=== PATIENT | male | born 1970 | race African-American/Black ===

== ENCOUNTER 2023-06-25 09:55 | Inpatient (IN) | payer SELFPAY ==
[2023-06-25] VITALS (16 sets, daily range): BP systolic 161–239; BP diastolic 94–146; PULSE 75–112; RESP 12–18; TEMP 36.6–36.7; O2SAT 98–100; BMI 24.0
--- NOTE | ~2023-06-25 | XR_ITS ---
EXAMINATION: XR CHEST 2 VIEW CLINICAL INFORMATION: Tension COMPARISON: None TECHNIQUE: PA and lateral views of the chest obtained. FINDINGS: The lungs are clear. There are no pleural effusions. The cardiomediastinal silhouette is normal. XR/XR chest 2V IMPRESSION: No acute cardiopulmonary disease.
--- NOTE | ~2023-06-25 | CT_ITS ---
EXAMINATION: CT HEAD WITHOUT CONTRAST CLINICAL INFORMATION: Weakness. COMPARISON: None. TECHNIQUE: Contiguous axial imaging was performed from the skullbase to vertex without intravenous administration of contrast. This CT examination was performed using dose optimization techniques as appropriate, variously including the following: *Automated exposure control *Adjustment of mA and/or kV according to patient size (this includes techniques or standardized protocols for targeted exams where dose is matched to indication/reason for exam; i.e. extremities or head) *Use of iterative reconstruction technique DLP: 835 mGy-cm. FINDINGS: There is no evidence of acute intracranial hemorrhage or territorial infarction. No abnormal mass effect or midline shift is seen. Benavidez to white matter differentiation is well preserved. No extra-axial fluid collections are identified. The ventricles are normal in size. There is no abnormal attenuation within the brain parenchyma. The osseous structures and soft tissues are normal. The mastoid air cells are well aerated. There is very mild mucosal thickening in the maxillary sinuses. CT/CT head/brain wo IV con IMPRESSION: No acute intracranial pathology.
--- NOTE | ~2023-06-25 | CT_ITS ---
EXAMINATION: CT HEAD WITHOUT CONTRAST CLINICAL INFORMATION: Hypertension COMPARISON: None available. TECHNIQUE: Contiguous axial imaging was performed from the skull base to vertex without intravenous administration of contrast. This CT examination was performed using dose optimization techniques as appropriate, variously including the following: *Automated exposure control *Adjustment of mA and/or kV according to patient size (this includes techniques or standardized protocols for targeted exams where dose is matched to indication/reason for exam; i.e. extremities or head) *Use of iterative reconstruction technique DLP: 822 mGy-cm FINDINGS: The ventricles and sulci are normal in size and configuration. No acute hemorrhage, mass effect or shift is evident. Ebnavidez-white differentiation is maintained. In the posterior fossa, the brainstem, cerebellum and fourth ventricle image normally. The orbits and calvarium are intact. The paranasal sinuses and mastoid air cells are well pneumatized and clear. CT/CT head/brain wo IV con IMPRESSION: 1. Unremarkable noncontrast brain CT. No acute hemorrhage, mass effect or shift. .
--- NOTE | 2023-06-25 10:15 | ECG_ITS ---
Test Reason : hypertension Blood Pressure : / mmHG Vent. Rate : 089 BPM Atrial Rate : 089 BPM P-R Int : 154 ms QRS Dur : 098 ms QT Int : 338 ms P-R-T Axes : 082 050 088 degrees QTc Int : 411 ms Normal sinus rhythm Possible Left atrial enlargement Left ventricular hypertrophy with repolarization abnormality ( Sokolow-Horowitz , [place] product ) Abnormal ECG No previous ECGs available Referred By: Generic ED Physician Electronically Signed By:GAYLE SOMERS MD
[2023-06-25 10:33] LABS: MANUAL DIFF FLAG NO
[2023-06-25 10:34] LABS: Basophils Percent Auto 0.2 % (0-2); Eosinophils Percent Auto 0.1 % (0-4); Hematocrit 42.5 % (42.0-52.0); Hemoglobin 14.1 g/dl (14.0-18.0); Imm Gran Abs Auto 0.02 X10*3/uL (0.00-0.03); Imm Gran Pct Auto 0.2 % (0.0-0.4); Lymphocytes Absolute Auto 1.3 X10*3/uL (1.2-4.9); Lymphocytes Percent Auto 14.9 % (20-40); Mean Corpuscular HGB Conc 33.2 g/dl (31.0-36.0); Mean Corpuscular Hemoglobin 31.2 pg (27.0-33.0); Mean Platelet Volume 11.4 fL (9.4-12.4); Monocytes Absolute Auto 0.6 X10*3/uL (0.1-1.2); Monocytes Percent Auto 6.9 % (2-11); Neutrophils Absolute Auto 6.7 x10*3/uL (2.0-8.3); Neutrophils Percent Auto 77.7 % (45-73); Platelet Count 212 X10*3/uL (160-400); Red Blood Count 4.52 X10*6/uL (4.60-5.80); Red Cell Distribution Width 11.9 % (11.0-16.0); White Blood Count 8.6 X10*3/uL (4.8-10.8)
[2023-06-25 10:48] LABS: Anion Gap 16 (12-20); Blood Urea Nitrogen 10 mg/dL (9-16); Calcium 10.3 mg/dL (8.4-10.2); Carbon Dioxide 26 mmol/L (22-29); Chloride 106 mmol/L (96-108); Estimated Glomerular Filt Rate > 60; Glucose Random 113 mg/dL (60-115); Potassium 3.7 mmol/L (3.3-5.1); Sodium 144 mmol/L (135-145)
[2023-06-25 10:56] LABS: Troponin-I High Sensitivity 12.6 ng/L (<3.5-35.0)
--- NOTE | 2023-06-25 12:12 | ED_ITS ---
HPI - General Adult General Chief complaint: General Medical Stated complaint: High Blood Pressure Sent by Time Seen by Provider: 06/25/23 12:08 Source: patient Mode of arrival: ambulatory Limitations: no limitations History of Present Illness HPI narrative: 53 year old male was seen at [facility] for a physical and was noted to have hypertension. Patient states he is aware of his hypertension and and endorses a family history of hypertension. He denies having been prescribed an antihypertensive in the past but is interested in taking one. Patient reports he periodically experiences dizziness and blurry vision but denies both at this time. Additionally, denies headache, nausea, vomiting, chest pain and SOB. Relieving factors: none Exacerbating factors: none Associated symptoms: denies other symptoms Treatments prior to arrival: none Related Data Home Medications Medication Instructions Recorded Confirmed No Known Home Meds 06/25/23 06/25/23 Allergies Allergy/AdvReac Type Severity Reaction Status Date / Time apple Allergy Intermediate Nausea Verified 06/25/23 10:09 banana Allergy Intermediate Swelling Verified 06/25/23 10:09 milk Allergy Mild Nausea Verified 06/25/23 10:09 Review of Systems 2 Constitutional: Constitutional: Denies headache(s) and Denies weakness Eyes: Eyes: Denies blurry vision and Denies change in vision ENT: Denies dizziness, Denies headache(s) and Denies disequilibrium Cardiovascular: Cardiovascular: Denies chest pain, Denies edema, Reports palpitations and Denies dyspnea Respiratory: Respiratory: Denies dyspnea and Denies wheezing Gastrointestinal: Gastrointestinal: Denies abdominal pain, Denies nausea and Denies vomiting Genitourinary: Genitourinary: Reports no additional male genitourinary complaints, Denies hematuria, Denies oliguria, Denies difficulty urinating, Denies dysuria, Denies urinary frequency, Denies urinary hesitancy, Denies urinary incontinence and Denies urinary urgency Musculoskeletal: Musculoskeletal: Reports no additional musculoskeletal complaints, Denies numbness and Denies tingling Neurologic: Denies dizziness, Denies headache(s), Denies numbness, Denies Sensory deficit (Neuro), Denies tingling, Denies disequilibrium and Denies weakness Psychiatric: Psychiatric: Reports no additional psychiatric complaints Endocrine: Endocrine: Reports palpitations Hematologic/Lymphatic: Hematologic/Lymphatic: Reports no additional hematologic/lymphatic complaints Allergic/Immunologic: Allergic/Immunologic: Denies wheezing PMFSH Past Medical History Attestation statement: The following information was validated with the patient. Source: old records reviewed and nursing notes reviewed Social History Social History Smoked in Last 30 Days: No Use of substances other than those prescribed or required for medical reasons: No Advance Directives: No Physical Exam ED Vital Signs: Vital Signs - 24 hr 06/25/23 10:10 06/25/23 12:24 06/25/23 12:36 Temperature 98.0 F Pulse Rate 100 112 H Pulse Rate [Monitor] 103 H Respiratory Rate 18 12 Blood Pressure 239/146 H 221/135 H Pulse Oximetry 98 100 Oxygen Delivery Method Room Air Room Air 06/25/23 13:49 06/25/23 14:22 06/25/23 15:34 Temperature Pulse Rate 96 106 H Pulse Rate [Monitor] Respiratory Rate 16 16 Blood Pressure 213/114 H 221/124 H 222/108 H Pulse Oximetry 98 100 Oxygen Delivery Method Room Air Room Air 06/25/23 16:54 06/25/23 17:15 06/25/23 18:40 Temperature Pulse Rate 97 88 Pulse Rate [Monitor] Respiratory Rate 16 18 Blood Pressure 228/133 H 208/123 H 208/125 H Pulse Oximetry 98 Oxygen Delivery Method Room Air 06/25/23 19:22 06/25/23 20:19 06/25/23 21:44 Temperature 97.9 F Pulse Rate 79 75 Pulse Rate [Monitor] Respiratory Rate 18 12 Blood Pressure 229/139 H 161/94 H 182/106 H Pulse Oximetry 98 99 Oxygen Delivery Method Room Air Room Air BMI result Body Mass Index 24.0 Const General: cooperative, no acute distress and alert Nutritional Appearance: well nourished Orientation/consciousness: oriented to person, oriented to place and oriented to time Limitations: no limitations HENMT Head: Yes atraumatic Ears: hearing grossly normal bilaterally and external ears normal General nose exam: Normal external nose present, no nasal discharge noted and no epistaxis Face and sinus: Yes normal facial exam, No abrasion and No laceration Mouth: Normal oral and palatal mucosa present, no drooling and no muffled voice Eyes General: appearance normal, both eyes and all related structures Periorbital: periorbital findings normal Eyelids: Yes eyelids normal Conjunctivae: conjunctivae normal Pupils: Equal, round and reactive pupils present EOM: EOMs intact bilaterally Neck Neck: Yes normal visual inspection, Yes full ROM and Yes no lymphadenopathy Chest Chest palpation & inspection: normal inspection of the chest Resp Effort & Inspection: normal respiratory effort, able to speak in complete sentences and not tachypneic Auscultation: clear to auscultation bilaterally Cardio Rate: regular rate Rhythm: regular rhythm GI Inspection: Yes normal to inspection Neuro General: oriented to person, oriented to place and oriented to time Cranial nerves: Yes Equal, round and reactive pupils present Cognition (Neuro): normal cognition Gait exam (Neuro): Normal gait present Motor exam (neuro): 5/5 motor strength present throughout Sensory Exam: No Sensory deficit (Neuro) Coordination: [id number] test normal Extrem General: Yes normal to inspection, Yes full ROM and Yes capillary refill normal Psych Appearance: well kempt Mental Status: mental status grossly normal Affect: normal affect Attitude: cooperative Thought process: Normal thought process present Thought content: Normal thought content present Insight: Good insight present (Psych) Course Reevaluation(s) Reevaluation #1: Patient received in sign-out at change shift pending blood pressure control and admission. Patient 100 received hydrochlorothiazide 25 mg p.o. and amlodipine 10 mg p.o. prior to my except in the patient's care. Patient blood pressure still elevated the approximately 220/130 systolic. He received labetalol 10 mg IV with slight improvement at any rate went back up to his baseline. I a trial dose of labetalol 20 mg IV with no improvement. Will trial a dose of hydralazine 20 mg IV with labetalol 20 mg IV and if this is not successful we will consider nicardipine drip Time: 19:15 Reevaluation #2: Patient had a syncopal episode after receiving IV labetalol with IV hydralazine. His blood pressure was recheck his systolic blood pressure was 95. The patient likely had a hypoperfusion episode due to the significant drop in blood pressure. He came back around quite quickly and he had no neuro deficits. The patient reports feeling lightheaded. Repeat EKG was performed. Will repeat labs. Will closely follow blood pressure every 15 minutes. Time: 20:11 Reevaluation #3: Patient admitted to the medical service Time: 21:45 Medications Administered Discontinued Medications Generic Name Dose Route Start Last Admin Trade Name Freq PRN Reason Stop Dose Admin Amlodipine Besylate 10 mg 06/25/23 14:47 06/25/23 15:11 Amlodipine Besylate 10 Mg Tablet PO 06/25/23 14:48 10 mg ONCE ONE Administration Protocol Hydralazine HCl 20 mg 06/25/23 19:13 06/25/23 19:24 Hydralazine Hcl 20 Mg/Ml Vial IVPUSH 06/25/23 19:14 20 mg ONCE ONE Administration Protocol Hydrochlorothiazide 25 mg 06/25/23 13:28 06/25/23 13:47 Hydrochlorothiazide 25 Mg Tablet PO 06/25/23 13:29 25 mg ONCE ONE Administration Protocol Labetalol HCl 10 mg 06/25/23 16:27 06/25/23 16:51 Labetalol Hcl 100 Mg/20 Ml Vial IVPUSH 06/25/23 16:28 10 mg ONCE ONE Administration Labetalol HCl 20 mg 06/25/23 18:26 06/25/23 18:41 Labetalol Hcl 100 Mg/20 Ml Vial IVPUSH 06/25/23 18:27 20 mg ONCE ONE Administration Labetalol HCl 20 mg 06/25/23 19:13 06/25/23 19:24 Labetalol Hcl 100 Mg/20 Ml Vial IVPUSH 06/25/23 19:14 20 mg ONCE ONE Administration Medical Decision Making Medical Decision Making [facility] Narrative: Patient is a 53 year old assigned male at with a history of untreated HTN presenting to the emergency department today with HTN. Patient's physical exam was unremarkable. Patient's blood work was unremarkable. Patient's urine showed no acute process. Patient's EKG showed LVH. Patient's chest x-ray and head CT showed no acute process. I explained my physical exam findings as well as all test results to the patient. I answered all questions asked by the patient. I spoke to the dope weigh operator who recommended giving the patient PO HCTZ and admitting the patient to medicine if his blood pressure did not drop. Patient's blood pressure did not decrease much after getting the PO HCTZ. Spoke with the hospitalist team who stated they would not be admitting the patient until the systolic BP is below 200. Patient was given a dose of amlodipine. Patient signed out to the overnight PA pending blood pressure decreasing. Differential Diagnosis Differential Diagnoses: The differential diagnosis associated with the presentation includes HTN Admission/Observation Consideration of admission/observation: Escalation of care including admission/observation considered Consult Healthcare Provider Management of the patient was discussed with: Senior Android Software Engineer (spoke with cardiology as noted in the MDM Rationale portion of this note. ) Lab Data [facility] Lab Attestation statement: I reviewed the patient's lab results. My interpretation of these studies and their corresponding values is that they are grossly normal. 06/25/23 10:27 06/25/23 20:08 Labs: Lab Results 06/25/23 06/25/23 06/25/23 Range/Units 10:27 12:52 12:56 WBC 8.6 (4.8-10.8) X10*3/uL RBC 4.52 L (4.60-5.80) X10*6/uL Hgb 14.1 (14.0-18.0) g/dl Hct 42.5 (42.0-52.0) % MCV 94.0 (80.0-98.0) fL MCH 31.2 (27.0-33.0) pg MCHC 33.2 (31.0-36.0) g/dl RDW 11.9 (11.0-16.0) % Plt Count 212 (160-400) X10*3/uL MPV 11.4 (9.4-12.4) fL Immature Gran % (Auto) 0.2 (0.0-0.4) % Neut % (Auto) 77.7 H (45-73) % Lymph % (Auto) 14.9 L (20-40) % [place] % (Auto) 6.9 (2-11) % Eos % (Auto) 0.1 (0-4) % Baso % (Auto) 0.2 (0-2) % Lymph # (Auto) 1.3 (1.2-4.9) X10*3/uL [place] # (Auto) 0.6 (0.1-1.2) X10*3/uL Eos # (Auto) 0.0 (0.0-0.4) X10*3/uL Baso # (Auto) 0.0 (0.0-0.2) X10*3/uL Abs Immat Gran (auto) 0.02 (0.00-0.03) X10*3/uL Absolute Neuts (auto) 6.7 (2.0-8.3) x10*3/uL Absolute Nucleated RBC 0.000 (0.0-0.012) X10*3/uL Nucleated RBC % (auto) 0.0 (0.0-0.2) /100WBC Sodium 144 (135-145) mmol/L Potassium 3.7 (3.3-5.1) mmol/L Chloride 106 (96-108) mmol/L Carbon Dioxide 26 (22-29) mmol/L Anion Gap 16 (12-20) BUN 10 (9-16) mg/dL Creatinine 1.11 (0.5-1.4) mg/dL Estim Creat Clear Calc 81.0 Estimated GFR > 60 Random Glucose 113 (60-115) mg/dL Calcium 10.3 H (8.4-10.2) mg/dL Total Bilirubin (0.0-1.0) mg/dL AST (5-37) U/L ALT (0-40) U/L Alkaline Phosphatase (39-117) U/L Troponin I High Sens 12.6 15.1 (<3.5-35.0) ng/L Total Protein (6.5-8.0) g/dL Albumin (3.5-5.0) g/dL Urine Color Yellow Urine Appearance Clear Urine pH 7.0 (5.0-9.0) Ur Specific [place] 1.010 (1.005-1.025) Urine Protein 30 (1+) H (Neg-Trace) mg/dL Urine Glucose (UA) Negative (Negative) mg/dL Urine Ketones 15 (Negative) mg/dL Urine Blood Negative (Negative) Urine Nitrite Negative (Negative) Ur Leukocyte Esterase Negative (Negative) Urine RBC 0-2 (0-2) /HPF Urine WBC 0-5 (0-5) /HPF Ur Squamous Epith Cells 0-2 (0-2) /HPF Urine Bacteria None Seen (None Seen) Hyaline Casts 0-2 (0-2) /LPF 06/25/23 Range/Units 20:08 WBC (4.8-10.8) X10*3/uL RBC (4.60-5.80) X10*6/uL Hgb (14.0-18.0) g/dl Hct (42.0-52.0) % MCV (80.0-98.0) fL MCH (27.0-33.0) pg MCHC (31.0-36.0) g/dl RDW (11.0-16.0) % Plt Count (160-400) X10*3/uL MPV (9.4-12.4) fL Immature Gran % (Auto) (0.0-0.4) % Neut % (Auto) (45-73) % Lymph % (Auto) (20-40) % [place] % (Auto) (2-11) % Eos % (Auto) (0-4) % Baso % (Auto) (0-2) % Lymph # (Auto) (1.2-4.9) X10*3/uL [place] # (Auto) (0.1-1.2) X10*3/uL Eos # (Auto) (0.0-0.4) X10*3/uL Baso # (Auto) (0.0-0.2) X10*3/uL Abs Immat Gran (auto) (0.00-0.03) X10*3/uL Absolute Neuts (auto) (2.0-8.3) x10*3/uL Absolute Nucleated RBC (0.0-0.012) X10*3/uL Nucleated RBC % (auto) (0.0-0.2) /100WBC Sodium 143 (135-145) mmol/L Potassium 3.5 (3.3-5.1) mmol/L Chloride 105 (96-108) mmol/L Carbon Dioxide 26 (22-29) mmol/L Anion Gap 16 (12-20) BUN 10 (9-16) mg/dL Creatinine 1.27 (0.5-1.4) mg/dL Estim Creat Clear Calc 70.8 Estimated GFR 59 Random Glucose 189 H (60-115) mg/dL Calcium 10.3 H (8.4-10.2) mg/dL Total Bilirubin 0.7 (0.0-1.0) mg/dL AST 16 (5-37) U/L ALT 9 (0-40) U/L Alkaline Phosphatase 54 (39-117) U/L Troponin I High Sens 28.9 D (<3.5-35.0) ng/L Total Protein 8.1 H (6.5-8.0) g/dL Albumin 4.4 (3.5-5.0) g/dL Urine Color Urine Appearance Urine pH (5.0-9.0) Ur Specific [place] (1.005-1.025) Urine Protein (Neg-Trace) mg/dL Urine Glucose (UA) (Negative) mg/dL Urine Ketones (Negative) mg/dL Urine Blood (Negative) Urine Nitrite (Negative) Ur Leukocyte Esterase (Negative) Urine RBC (0-2) /HPF Urine WBC (0-5) /HPF Ur Squamous Epith Cells (0-2) /HPF Urine Bacteria (None Seen) Hyaline Casts (0-2) /LPF Independent Interpretation I performed an independent interpretation of an: EKG, Plain X-Ray and CT Scan Interpretation: My interpretation is in agreement with the radiologist's impression of these imaging studies. - EXAMINATION: CT HEAD WITHOUT CONTRAST CLINICAL INFORMATION: Hypertension COMPARISON: None available. TECHNIQUE: Contiguous axial imaging was performed from the skull base to vertex without intravenous administration of contrast. This CT examination was performed using dose optimization techniques as appropriate, variously including the following: *Automated exposure control *Adjustment of mA and/or kV according to patient size (this includes techniques or standardized protocols for targeted exams where dose is matched to indication/reason for exam; i.e. extremities or head) *Use of iterative reconstruction technique DLP: 822 mGy-cm FINDINGS: The ventricles and sulci are normal in size and configuration. No acute hemorrhage, mass effect or shift is evident. Benavidez-white differentiation is maintained. In the posterior fossa, the brainstem, cerebellum and fourth ventricle image normally. The orbits and calvarium are intact. The paranasal sinuses and mastoid air cells are well pneumatized and clear. CT/CT head/brain wo IV con IMPRESSION: 1. Unremarkable noncontrast brain CT. No acute hemorrhage, mass effect or shift. Dictated By: Jimi Muro MD Signed By: Electronically signed by Jimi Muro MD 06/25/23 1243 - EXAMINATION: XR CHEST 2 VIEW CLINICAL INFORMATION: Tension COMPARISON: None TECHNIQUE: PA and lateral views of the chest obtained. FINDINGS: The lungs are clear. There are no pleural effusions. The cardiomediastinal silhouette is normal. XR/XR chest 2V IMPRESSION: No acute cardiopulmonary disease. Dictated By: Jimi Muro MD Signed By: Electronically signed by Jimi Muro MD 06/25/23 1226 - Vent. Rate: 089 BPM Atrial Rate: 089 BPM P-R Int: 154 ms QRS Dur: 098 ms QT Int: 338 ms P-R-T Axes: 082 050 088 degrees QTc Int: 411 ms Normal sinus rhythm Possible Left atrial enlargement Left ventricular hypertrophy with repolarization abnormality ( Sokolow-Horowitz , [place] product ) Abnormal ECG No previous ECGs available DD/ 1020 Radiology Impression Discussion of test interpretation with radiology: I have reviewed the radiologist's reading. Critical Care Time Critical Care Time Critical Care Time: Yes Total Critical Care Time: 60 Attestation: I spent 60 minutes of Critical Care Time with this patient. This does not include time spent on separately reported billable procedures. Discharge Plan Discharge Clinical Impression: Hypertension Patient Disposition: Admitted As Inpatient Prescriptions: No Action No Known Home Meds
--- NOTE | 2023-06-25 12:34 | PC.NURSE ---
pt a&ox4, hypertensive, weatherization and housing inspector applied - sinus tach, other vss. pt brought to ED from [employer] [facility] for eval re hypertension. pt reports hx of HTN but has never been on medication. denies any symptoms at this time but reports occ blurred vision/dizziness. pt pending CT results. no new orders at this time.
[2023-06-25 13:11] LABS: Appearance Urine Clear; Color Urine Yellow; Glucose Urine UA Negative (Negative); Leukocyte Esterase Urine Negative (Negative); Nitrite Urine Negative (Negative); UMIC TRIGGER UACC YES; Urine Blood Negative (Negative); Urine Ketones 15 mg/dL (Negative); Urine Protein 30 (1+) mg/dL (Neg-Trace)
[2023-06-25 13:13] LABS: Bacteria Urine None Seen (None Seen); Hyaline Casts Urine 0-2 /LPF (0-2); RBC Urine 0-2 /HPF (0-2); Squamous Epithelial Cell Urine 0-2 /HPF (0-2); WBC Urine 0-5 /HPF (0-5)
[2023-06-25 13:22] LABS: Troponin-I High Sensitivity 15.1 ng/L (<3.5-35.0)
[2023-06-25] MEDS: hydroCHLOROthiazide 25 MG TABLET PO (13:47)
--- NOTE | 2023-06-25 13:49 | PC.NURSE ---
medicated per MAR.
[2023-06-25] MEDS: amLODIPine Besylate 10 MG TABLET PO (15:11)
--- NOTE | 2023-06-25 16:22 | PHA.MEDREC ---
Pharmacy Consult ? Medication Reconciliation Pharmacy has completed the medication reconciliation. Patient reports no medications at home per RN. Porsha Lane, [place]
[2023-06-25] MEDS: Labetalol HCL 100 MG/20 ML VIAL 10 MG IVPUSH (16:51)
[2023-06-25] MEDS: Labetalol HCL 100 MG/20 ML VIAL 20 MG IVPUSH ×2 (18:41→19:24)
[2023-06-25] MEDS: hydrALAZINE HCl 20 MG/ML VIAL IVPUSH (19:24)
--- NOTE | 2023-06-25 19:47 | ECG_ITS ---
Test Reason : HIGH BP Blood Pressure : / mmHG Vent. Rate : 052 BPM Atrial Rate : 052 BPM P-R Int : 156 ms QRS Dur : 102 ms QT Int : 446 ms P-R-T Axes : 068 049 195 degrees QTc Int : 414 ms Sinus bradycardia T-wave inversion in Inferior leads Left ventricular hypertrophy with repolarization abnormality ( Sokolow-Horowitz , [place] product ) Abnormal ECG When compared with ECG of 25-JUN-2023 10:20, Vent. rate has decreased BY 37 BPM T wave inversion now evident in Inferior leads T wave inversion more evident in Lateral leads Referred By: Dl Patel Electronically Signed By:GAYLE SOMERS MD
--- NOTE | 2023-06-25 19:55 | ECG_ITS ---
Test Reason : HIGH BP Blood Pressure : / mmHG Vent. Rate : 065 BPM Atrial Rate : 065 BPM P-R Int : 154 ms QRS Dur : 104 ms QT Int : 424 ms P-R-T Axes : 078 050 178 degrees QTc Int : 440 ms Normal sinus rhythm Left ventricular hypertrophy with repolarization abnormality ( Sokolow-Horowitz , [place] product , [place] ) T-wave inversion in Inferior leads Abnormal ECG When compared with ECG of 25-JUN-2023 19:46, No significant change was found Referred By: Fred De La O Electronically Signed By:GAYLE SOMERS MD
--- NOTE | 2023-06-25 20:23 | MHC.EDTECH ---
This tech assumed care of PT about 19:35. PT was sitting in clothed he came in hospital with and seemed lathargic but responsive. Tech noticed leads were not on monitor. Tech goes to correct leads and noticed PT to be diaphoretic and unresponsive. Nurse and provider enters room to assess situation. Once PT is stabilized PT is changed into hospital attires. PT is placed on O2, SPO2, heart monitor and BP cuff set to every 15 minutes. PT given warm blanket and is now resting quietly. PT does c/o of some dizziness and provider is notified.
[2023-06-25 20:43] LABS: Alanine Aminotransferase 9 U/L (0-40); Albumin Level 4.4 g/dL (3.5-5.0); Alkaline Phosphatase 54 U/L (39-117); Anion Gap 16 (12-20); Aspartate Amino Transferase 16 U/L (5-37); Bilirubin Total 0.7 mg/dL (0.0-1.0); Blood Urea Nitrogen 10 mg/dL (9-16); Calcium 10.3 mg/dL (8.4-10.2); Carbon Dioxide 26 mmol/L (22-29); Chloride 105 mmol/L (96-108); Creatinine Clr Calc Pharmacy 70.8; Estimated Glomerular Filt Rate 59; Glucose Random 189 mg/dL (60-115); Potassium 3.5 mmol/L (3.3-5.1); Sodium 143 mmol/L (135-145); Total Protein 8.1 g/dL (6.5-8.0)
--- NOTE | 2023-06-25 20:45 | P.HPHOSP_ITS ---
History of Present Illness Date of Service: 06/25/23 Chief Complaint: Elevated Bloop Pressure A 53-year-old male with a history of hypertension but not currently on any medication and lacking a primary care physician (PCP). During an employment physical examination at the [employer] [facility], extremely elevated blood pressure was noted, although the patient did not experience any symptoms. Subsequently, he was referred to the ED for further evaluation and management. BP readings have been as follow Meds given given in the ED: HCTZ 25 mg PO at 13:29 Norvasc 10 mg PO at 14:48 Labetalol 10 mg IV at 16:29 Labetalol 20 mg IV at 18:27 Labetatolol 20 mg IV at 19:14 Hydralazine 20 mg IV at 19: 14 It is reported that he experienced hypotension following the administration of a combination of IV Hydralazine 20 and IV Labetalol 20, resulting in a transient drop in systolic blood pressure to 95 and was briefly confused. However, he quickly and fully recovered. Most recent BP is 161/94 Review of Systems 2 Review of Systems: Gen: no fever Resp: no sob, no cough CV: no chest, no SCHMITT, no leg edema GI: No n/v, no abd pain Neuro: No confusion PMFSH Social History Household Members: Spouse Housing: [facility] Do you presently have visiting nurse or other home services: No Patient Tobacco Use Status: Never used Tobacco service: No Meds Allergies Allergy/AdvReac Type Severity Reaction Status Date / Time apple Allergy Intermediate Nausea Verified 06/25/23 10:09 banana Allergy Intermediate Swelling Verified 06/25/23 10:09 milk Allergy Mild Nausea Verified 06/25/23 10:09 Physical Exam 2 Vital Signs and Narrative: Vital Signs: Last Vital Signs Temp 97.9 F 06/25/23 20:19 Pulse 75 06/25/23 20:19 Resp 12 06/25/23 20:19 BP 161/94 H 06/25/23 20:19 Pulse Ox 99 06/25/23 20:19 O2 Del Method Room Air 06/25/23 20:19 BMI result Body Mass Index 24.0 Const: Other: Constitutional: Alert, in no distress Mental Status: Oriented to person, place and time. Eyes: Pupils are equal, round and reactive to light. Ear, Nose and Throat: Oropharynx clear, mucous membranes moist. Respiratory: Clear to auscultation. No wheezing, rales or rhonchi. Cardiovascular: S1 S2 regular. No murmurs, rubs or gallops. Gastrointestinal: Abdomen soft, non-tender, non-distended. Normal bowel sounds.? Neurologic: Cranial nerves II-XII grossly intact. No focal neurological deficits. Moves all extremities spontaneously.? Skin: No rashes or lesions.? Musculoskeletal: No cyanosis or clubbing. Psychiatric: Normal mood and affect? Results Labs 06/27/23 06:55 06/27/23 06:55 Labs: Laboratory Results - last 24 hr 06/25/23 06/25/23 06/25/23 10:27 12:56 20:08 MCV 94.0 MCH 31.2 MCHC 33.2 RDW 11.9 Plt Count 212 MPV 11.4 Immature Gran % (Auto) 0.2 Neut % (Auto) 77.7 H Lymph % (Auto) 14.9 L [place] % (Auto) 6.9 Eos % (Auto) 0.1 Baso % (Auto) 0.2 Lymph # (Auto) 1.3 [place] # (Auto) 0.6 Eos # (Auto) 0.0 Baso # (Auto) 0.0 Abs Immat Gran (auto) 0.02 Absolute Neuts (auto) 6.7 Absolute Nucleated RBC 0.000 Nucleated RBC % (auto) 0.0 Anion Gap 16 16 Estim Creat Clear Calc 81.0 70.8 Estimated GFR > 60 59 Random Glucose 113 189 H Calcium 10.3 H 10.3 H Total Bilirubin 0.7 AST 16 ALT 9 Alkaline Phosphatase 54 Total Protein 8.1 H Albumin 4.4 Urine Color Yellow Urine Appearance Clear Urine pH 7.0 Ur Specific [place] 1.010 Urine Protein 30 (1+) H Urine Glucose (UA) Negative Urine Ketones 15 Urine Blood Negative Urine Nitrite Negative Ur Leukocyte Esterase Negative Urine RBC 0-2 Urine WBC 0-5 Ur Squamous Epith Cells 0-2 Urine Bacteria None Seen Hyaline Casts 0-2 Imaging Radiologist's Impressions: Impressions Chest X-Ray 06/25/23 12:19 IMPRESSION: No acute cardiopulmonary disease. Head CT 06/25/23 12:31 IMPRESSION: 1. Unremarkable noncontrast brain CT. No acute hemorrhage, mass effect or shift. . Assessment and Plan (1) GRSIELDA (acute kidney injury): Status: Acute (2) Accelerated essential hypertension: Status: Acute Plan A 53-year-old male with previously untreated hypertension is presenting with accelerated hypertension, necessitating the use of multiple medications, including intravenous drugs for blood pressure control. Plan: Overnight admission and avoid aggressively reducing blood pressure in the short term. In the morning, we will initiate oral medication, specifically Norvasc 5 mg and HCTZ 25 mg and adjust as needed. Additionally, it is crucial for the patient to schedule outpatient follow-up with a primary care physician. Time Spent With Patient Time: Total time managing care of this patient today ____ minutes. Quality Stroke Does the patient have a stroke diagnosis?: No VTE Prior VTE?: No VTE Risk Level:: Medical - low VTE Device Contraindication: Treatment Not Indicated VTE Drug Contraindication: Treatment Not Indicated
[2023-06-25 20:52] LABS: Troponin-I High Sensitivity 28.9 ng/L (<3.5-35.0)
--- NOTE | 2023-06-25 21:21 | PC.NURSE ---
late entry this RN o report on pt, pt's BP remained elevated. ROBERTO Camarillo added new orders, pt medicated per OCT. shortly after admin, BP dropped, pt became unresponsive and diaphoretic. gear setter was present. BP 97/53 @ 1945. ekg done. provider at bedside. pt became arousable. c/o dizziness. pt placed on 2L NC O2 at 99% 1953 BP 107/60, IVF started per MD, neuro exam completed by MD. pt alert and oriented but slightly slower to respond 1999 bp 123/71. pt feeling better, labs drawn.
[2023-06-26] VITALS (17 sets, daily range): BP systolic 122–229; BP diastolic 77–130; PULSE 72–105; RESP 12–18; TEMP 36.8–36.9; O2SAT 97–100; BMI 24.0
[2023-06-26] MEDS: 0.9 % Sodium Chloride Flush 3 ML SYRINGE IVFLUSH ×3 (00:20→16:38)
--- NOTE | 2023-06-26 00:47 | PC.NURSE ---
pt resting comfortably with eyes closed, breathing even and unlabored. no apparent distress at this time.
[2023-06-26] MEDS: hydroCHLOROthiazide 25 MG TABLET PO (08:12)
[2023-06-26] MEDS: amLODIPine Besylate 5 MG TABLET PO (08:12)
--- NOTE | 2023-06-26 08:20 | PC.NURSE ---
patient is awake and alert, took morning medications. Respirations equal and unlabored.
--- NOTE | 2023-06-26 11:03 | HO.PM.IMPN ---
Subjective Subjective Date of Service: 06/26/23 Review of Systems Follow-up hypertensive crisis Denies chest pain, shortness of breath, nausea, vomiting, diarrhea, headache Physical Exam Vital Signs: Vital Signs: Last Vital Signs Temp 98.2 F 06/26/23 07:46 Pulse 92 06/26/23 08:13 Resp 16 06/26/23 08:13 BP 173/110 H 06/26/23 08:13 Pulse Ox 99 06/26/23 08:13 O2 Del Method Room Air 06/26/23 08:13 BMI result Body Mass Index 24.0 Appearing in no acute distress lung sounds are clear to auscultation heart regular rate rhythm, clear S1, S2 positive bowel sounds, abdomen is soft, nontender neuro patient is alert x3, no focal deficits Objective Data Active Medications Acetaminophen (Acetaminophen 325 Mg Tablet) 650 mg PO Q6H PRN PRN Reason: Pain, Mild (Pain Scale 1-3) Amlodipine Besylate (Amlodipine Besylate 5 Mg Tablet) 5 mg PO DAILY [facility]; Protocol Last Admin: 06/26/23 08:12 Dose: 5 mg Documented By: YANN Hydralazine HCl (Hydralazine Hcl 20 Mg/Ml Vial) 10 mg IVPUSH Q6H PRN; Protocol PRN Reason: SBP > 190 Hydralazine HCl (Hydralazine Hcl 25 Mg Tablet) 25 mg PO TID [facility]; Protocol Hydrochlorothiazide (Hydrochlorothiazide 25 Mg Tablet) 25 mg PO DAILY [facility]; Protocol Last Admin: 06/26/23 08:12 Dose: 25 mg Documented By: YANN Magnesium Hydroxide (Milk Of Magnesia 30 Ml Oral.Susp) 30 ml PO DAILY PRN PRN Reason: Constipation Melatonin (Melatonin 3 Mg Tablet) 6 mg PO BEDTIME PRN PRN Reason: Insomnia Ondansetron HCl (Ondansetron Hcl 4 Mg/2 Ml Vial) 4 mg IVPUSH Q8H PRN PRN Reason: Nausea and Vomiting Sodium Chloride (0.9 % Sodium Chloride Flush 3 Ml Syringe) 3 ml IVFLUSH QSHIFT [facility] Last Admin: 06/26/23 08:12 Dose: 3 ml Documented By: YANN Labs 06/25/23 10:27 06/25/23 20:08 Labs: Laboratory Results - last 24 hr 06/25/23 06/25/23 12:56 20:08 Anion Gap 16 Estim Creat Clear Calc 70.8 Estimated GFR 59 Random Glucose 189 H Calcium 10.3 H Total Bilirubin 0.7 AST 16 ALT 9 Alkaline Phosphatase 54 Total Protein 8.1 H Albumin 4.4 Urine Color Yellow Urine Appearance Clear Urine pH 7.0 Ur Specific [place] 1.010 Urine Protein 30 (1+) H Urine Glucose (UA) Negative Urine Ketones 15 Urine Blood Negative Urine Nitrite Negative Ur Leukocyte Esterase Negative Urine RBC 0-2 Urine WBC 0-5 Ur Squamous Epith Cells 0-2 Urine Bacteria None Seen Hyaline Casts 0-2 Assessment and Plan (1) Hypertension: Status: Acute Plan 53-year-old man with history of previously untreated hypertension presenting with accelerated hypertension. He required multiple medications to control his blood pressure. Hypertensive urgency Started on amlodipine 5 mg daily, hydrochlorothiazide 25 mg daily and hydralazine 25 mg t.i.d. added Nephrology following monitor BP closely and avoid hypotensive episodes No other chronic medical problems DVT prophylaxis with Lovenox Attending Dr. Odom Full code continued hospital stay for tx of hypertension requiring close monitoring and medication management Quality Stroke Does the patient have a stroke diagnosis?: No VTE Prior VTE?: No VTE Risk Level:: Medical - low VTE Device Contraindication: Treatment Not Indicated VTE Drug Contraindication: Treatment Not Indicated
--- NOTE | 2023-06-26 12:46 | MHC.CM.PN ---
CM met with pt, he came here [facility], is employed by [employer], and had high BP. He does not have a PCP or health insurance. He informed CM that he will soon have health insurance, his went to the [employer] office today. List of PCP's were given to him, pt said he will follow up by getting connected with a PCP. CM contacted [facility] pharmacy to inquire on discount for non insured pt. and was told that they can give him a discount card. CM let pt know this and he said he is willing to pay for med if provider DC with script.
[2023-06-26] MEDS: hydrALAZINE HCl 25 MG TABLET PO ×3 (15:09→22:21)
--- NOTE | 2023-06-26 17:46 | PM.CNNEP ---
History of Present Illness Reason for Consult Consult date: 06/26/23 Reason for consult: HTN Chief Complaint Chief complaint: Accelerated HTN History of Present Illness Narrative: 53-year-old male with a history of hypertension but not currently on any medication and lacking a primary care physician (PCP). During an employment physical examination at the [employer], extremely elevated blood pressure was noted, although the patient did not experience any symptoms. Subsequently, he was referred to the ED for further evaluation and management. In ED , he received IV Labetolol and IV Hydralazine; Had an episode of hypotension- undocumented. Consult requested for BP management Review of Systems Constitutional: Denies fatigue, Denies night sweats and Denies weakness Eyes: Denies change in vision and Denies loss of vision Denies bleeding gums and Denies neck pain Cardiovascular: Denies chest pain, Denies syncope, Denies lightheadedness and Denies dyspnea Respiratory: Denies cough, Denies hemoptysis and Denies dyspnea Gastrointestinal: Denies bloating, Denies constipation and Denies nausea Genitourinary: Denies flank pain Musculoskeletal: Denies arthralgias and Denies neck pain Denies syncope, Denies loss of vision, Denies Sensory deficit (Neuro) and Denies weakness Endocrine: Denies fatigue PMFSH Social History Social History Household Members: Spouse [facility] Do you presently have visiting nurse or other home services: No Patient Tobacco Use Status: Never used Tobacco service: No Meds Allergies Allergy/AdvReac Type Severity Reaction Status Date / Time apple Allergy Intermediate Nausea Verified 06/25/23 10:09 banana Allergy Intermediate Swelling Verified 06/25/23 10:09 milk Allergy Mild Nausea Verified 06/25/23 10:09 Active Medications: Current Medications Acetaminophen (Acetaminophen 325 Mg Tablet) 650 mg PO Q6H PRN PRN Reason: Pain, Mild (Pain Scale 1-3) Amlodipine Besylate (Amlodipine Besylate 5 Mg Tablet) 5 mg PO DAILY [facility]; Protocol Last Admin: 06/26/23 08:12 Dose: 5 mg Hydralazine HCl (Hydralazine Hcl 20 Mg/Ml Vial) 10 mg IVPUSH Q6H PRN; Protocol PRN Reason: SBP > 190 Hydralazine HCl (Hydralazine Hcl 25 Mg Tablet) 25 mg PO TID [facility]; Protocol Last Admin: 06/26/23 15:09 Dose: 25 mg Hydrochlorothiazide (Hydrochlorothiazide 25 Mg Tablet) 25 mg PO DAILY [facility]; Protocol Last Admin: 06/26/23 08:12 Dose: 25 mg Magnesium Hydroxide (Milk Of Magnesia 30 Ml Oral.Susp) 30 ml PO DAILY PRN PRN Reason: Constipation Melatonin (Melatonin 3 Mg Tablet) 6 mg PO BEDTIME PRN PRN Reason: Insomnia Ondansetron HCl (Ondansetron Hcl 4 Mg/2 Ml Vial) 4 mg IVPUSH Q8H PRN PRN Reason: Nausea and Vomiting Sodium Chloride (0.9 % Sodium Chloride Flush 3 Ml Syringe) 3 ml IVFLUSH QSHIFT [facility] Last Admin: 06/26/23 16:38 Dose: 3 ml Home Medications Medication Instructions Recorded Confirmed Last Taken Type No Known Home Meds 06/25/23 06/25/23 Unknown History Physical Exam Vital Signs: Last Vital Signs Temp 98.4 F 06/26/23 15:08 Pulse 95 06/26/23 15:08 Resp 18 06/26/23 15:08 BP 189/102 H 06/26/23 16:22 Pulse Ox 98 06/26/23 15:08 O2 Del Method Room Air 06/26/23 15:08 BMI result Body Mass Index 24.0 Const General: comfortable Orientation/consciousness: patient oriented x3 HEENT Head: Yes normal to inspection Eyes Pupils: Equal, round and reactive pupils present Neck Neck: Yes supple Resp Effort & Inspection: normal respiratory effort Auscultation: no crackles and no wheezes Cardio Jugular venous distension: no JVD Palpation: no palpable S3 and no palpable S4 Heart sounds: no murmurs and no rubs Bruits: no abdominal aortic bruits GI Palpation (GI): No Abdominal aortic bruit present Skin General skin exam: no atrophy and no petechiae Neuro General: patient oriented x3 and CN's II-XI intact bilaterally Cranial nerves: Yes Equal, round and reactive pupils present Speech: Anomia present Motor exam (neuro): 5/5 motor strength present throughout Sensory Exam: No Sensory deficit (Neuro) Results Lab Results 06/25/23 10:27 06/25/23 20:08 Lab results: Chemistry 06/25/23 06/25/23 10:27 20:08 Sodium 144 143 Potassium 3.7 3.5 Carbon Dioxide 26 26 BUN 10 10 Creatinine 1.11 1.27 Calcium 10.3 H 10.3 H Hematology 06/25/23 10:27 WBC 8.6 Hgb 14.1 Plt Count 212 Urinalysis 06/25/23 12:56 Urine Color Yellow Urine Appearance Clear Urine pH 7.0 Ur Specific [place] 1.010 Urine Protein 30 (1+) H Urine Glucose (UA) Negative Urine Ketones 15 Urine Blood Negative Urine Nitrite Negative Ur Leukocyte Esterase Negative Urine RBC 0-2 Urine WBC 0-5 Ur Squamous Epith Cells 0-2 Hyaline Casts 0-2 Assessment and Plan (1) Hypertension: Qualifiers: Hypertension type: primary hypertension Qualified Code(s): I10 - Essential (primary) hypertension Status: Acute (2) GRISELDA (acute kidney injury): Status: Acute Plan Middle aged man with uncontrolled HTN Acceleration due to non compliance Other secondary caused need to be considered GRISELDA due to hypoperfusion from altered hemodynamics Work up ordered including urine studies Suggest Optimize BP Avoid rapid lowering of BP Prefer to avoid Intravenous agents Add Hydralazine 25 mg PO TID and titrate dose Due to bump in creatinine, would hold off on using ACEi/ARB Goal SBP 140-160 over next 24 hrs and 120-140 over next 48 hours Procedures Date of Service Date of Service: 06/26/23
[2023-06-26] MEDS: hydrALAZINE HCl 20 MG/ML VIAL 10 MG IVPUSH (19:47)
[2023-06-27 03:07] VITALS: BP 181/113; PULSE 96; RESP 17; TEMP 37.1; O2SAT 99
[2023-06-27 07:08] VITALS: BP 188/120; PULSE 114; RESP 18; TEMP 36.7; O2SAT 98
[2023-06-27 07:23] LABS: Hematocrit 48.1 % (42.0-52.0); Hemoglobin 15.5 g/dl (14.0-18.0); Mean Corpuscular HGB Conc 32.2 g/dl (31.0-36.0); Mean Corpuscular Hemoglobin 30.9 pg (27.0-33.0); Mean Corpuscular Volume 95.8 fL (80.0-98.0); Mean Platelet Volume 12.2 fL (9.4-12.4); Platelet Count 228 X10*3/uL (160-400); Red Blood Count 5.02 X10*6/uL (4.60-5.80); White Blood Count 8.6 X10*3/uL (4.8-10.8)
[2023-06-27 07:35] LABS: Anion Gap 17 (12-20); Blood Urea Nitrogen 17 mg/dL (9-16); Calcium 10.6 mg/dL (8.4-10.2); Carbon Dioxide 26 mmol/L (22-29); Chloride 102 mmol/L (96-108); Creatinine Clr Calc Pharmacy 63.7; Estimated Glomerular Filt Rate 52; Glucose Random 104 mg/dL (60-115); Potassium 3.6 mmol/L (3.3-5.1); Sodium 141 mmol/L (135-145)
[2023-06-27] MEDS: hydroCHLOROthiazide 25 MG TABLET PO (08:06)
[2023-06-27] MEDS: hydrALAZINE HCl 50 MG TABLET PO (08:06)
[2023-06-27] MEDS: amLODIPine Besylate 5 MG TABLET PO ×2 (08:06→10:43)
[2023-06-27] MEDS: 0.9 % Sodium Chloride Flush 3 ML SYRINGE IVFLUSH (08:07)
[2023-06-27 09:36] VITALS: BP 220/110
[2023-06-27 10:21] VITALS: BP 222/108; PULSE 106
[2023-06-27 11:37] VITALS: BP 208/118; PULSE 110; RESP 18; TEMP 36.6; O2SAT 96
--- NOTE | 2023-06-27 12:11 | PC.NURSE ---
Patients blood pressure continuously elevated this morning despite blood pressure medication. Provider Raghu aware. Patient asymptomatic. One time dose of Amlodipine given. Patient bp continues to be elevated. Raghu aware and at bedside. Patient and family expressing desire to leave AMA. Educated on risks of leaving AMA and realizing hospital of liability. Patient expressed understanding. AMA form signed. Peripheral IV removed. electronic device monitor removed.
--- NOTE | 2023-06-27 12:21 | PM.DS ---
DS: Providers Provider Date of Service: 06/27/23 Date of admission: 06/25/23 22:18 Date of discharge: 06/27/23 Primary care physician: None Physician Consults: 06/26/23 10:05 Consult to Nephrology Routine Consulting Provider: [facility] Reason for consultation: HTN Attending physician on discharge: Oliverio Byrnes Discharging clinician: Judy Krishnamurthy DS: Diagnosis Discharge Diagnosis (1) Hypertension: Status: Acute (2) GRISELDA (acute kidney injury): Status: Acute DS: Summary Hospital Course Hospital Course: From H&P on the day of admission A 53-year-old male with a history of hypertension but not currently on any medication and lacking a primary care physician (PCP). During an employment physical examination at the [employer], extremely elevated blood pressure was noted, although the patient did not experience any symptoms. Subsequently, he was referred to the ED for further evaluation and management. Hypertensive urgency Blood pressure initially 239/146. She was started on Started on amlodipine 10 mg daily, hydrochlorothiazide 25 mg daily and hydralazine 25 mg t.i.d. Blood pressure has remained elevated. He has remained symptomatic. Creatinine has trended up slightly to 1.41 today which is likely a result of brief episode of hypotension in the ED on the day of admission. He was seen by nephrology. Unfortunately the patient decided to leave against medical advice. Elevated blood pressure was discussed with the patient and family in detail and risks of leaving while blood pressure is still significantly elevated was discussed including risk of stroke, heart failure, heart attack. He understands and is in agreement as well as his family at the bedside. He states that he plans to go to [facility] from here as it is closer to his house. He is encouraged to obtain a PCP. Medications were sent to his pharmacy but he is encourage to find PCP for close blood pressure monitoring. He did not want to receive IV medication for acute blood pressure lowering prior to leaving. Time Attestation Discharge coordination time: Greater than 30 minutes Quality: Safe Use of Opioids Does Pt have an Active Cancer Diagnosis on the Problem List?: No Quality: Stroke Does the patient have a stroke diagnosis?: No Physical Exam Vital Signs: Vital Signs: Last Vital Signs Temp 97.8 F 06/27/23 11:37 Pulse 110 H 06/27/23 11:37 Resp 18 11/02/23 11:37 BP 208/118 H 11/02/23 11:37 Pulse Ox 96 06/27/23 11:37 O2 Del Method Room Air 06/27/23 11:37 BMI result Body Mass Index 24.0 Const: General: cooperative, comfortable, no acute distress, alert and awake Nutritional Appearance: average body habitus Orientation/consciousness: patient oriented x3 Resp: Effort & Inspection: normal respiratory effort, able to speak in complete sentences, no respiratory distress and no use of accessory muscles Cardio: Rate: tachycardic GI: Inspection: No distended Palpation (GI): Soft to palpation and nontender Neuro: General: patient oriented x3, moves all extremities and CN's II-XI intact bilaterally Extrem: General: Yes no pedal edema DS: Data Data Completed and Pending Labs on day of discharge: Laboratory Results - last 24 hr 06/27/23 06:55 WBC 8.6 RBC 5.02 Hgb 15.5 Hct 48.1 MCV 95.8 MCH 30.9 MCHC 32.2 RDW 12.0 Plt Count 228 MPV 12.2 Absolute Nucleated RBC 0.000 Nucleated RBC % (auto) 0.0 Sodium 141 Potassium 3.6 Chloride 102 Carbon Dioxide 26 Anion Gap 17 BUN 17 H Creatinine 1.41 H Estim Creat Clear Calc 63.7 Estimated GFR 52 Random Glucose 104 Calcium 10.6 H Discharge Plan Discharge Patient Disposition: Left Against Medical Advice Discharge Diagnosis: uncontrolled blood pressure GRISELDA Referrals: Physician,None [Primary Care Provider] - 1 Week Discharge Medications: New amlodipine [Norvasc] 10 mg tablet 10 mg PO DAILY 30 Days Qty: 30 0RF hydralazine 25 mg tablet 25 mg PO TID 30 Days Qty: 90 0RF hydrochlorothiazide 25 mg tablet 25 mg PO DAILY 30 Days Qty: 30 0RF Discharge Orders: Discharge Order (Routine); Ordered 06/27/23 Ordered By: Judy Krishnamurthy Care Plan Goals: left against medical advice Health Concerns: uncontrolled blood pressure GRISELDA Plan of Treatment: you are currently being treated for uncontrolled blood pressure. your blood pressure is still elevated and have been recommended to stay in the hospital for further blood pressure medication titration/adjustment. You have chosen to leave the hospital despite uncontrolled blood pressure and understand that there is risk for stroke, heart attack etc. please return or go the nearest emergency room with any headache, chest pain, shortness of breath or vision changes. Blood pressure medication will be sent to pharmacy. please obtain primary care provider to closely monitor your blood pressure and lab work regularly Assessment: left against medical advice Discharge Date/Time: 06/27/23 12:17
--- NOTE | 2023-06-27 12:48 | MHC.CM.PN ---
Patient left AMA.
== END 2023-06-27 12:17 | disposition left against medical advice (07) | DRG 305 ==
LOC: HO.ED 21:45 → HO.EDOVER 22:19 → HO.IMC 06-26 14:20
PROVIDERS: Nurse Practitioner Acute Care; Physician Assistant Medical; Admitting Provider Internal Medicine; Emergency Provider Emergency Medicine; Visit Provider Physician Assistant Medical
DX: I16.0 Hypertensive urgency (principal); N17.9 Acute kidney failure, unspecified; I10 Essential (primary) hypertension
CPT/HCPCS: 36415; 70450; 71046; 80048; 80053; 81001; 84484; 85025; 85027; 93005; 99285

== ENCOUNTER → 2023-06-25 22:18 | Outpatient (BNV) | payer SELFPAY | PROVIDERS: Admitting Provider Internal Medicine; Emergency Provider Emergency Medicine; Visit Provider Nurse Practitioner Acute Care | DX: N17.9 Acute kidney failure, unspecified (principal); I10 Essential (primary) hypertension | CPT/HCPCS: 99222; 99232; 99239 ==

== ENCOUNTER → 2023-06-25 22:18 | Outpatient (BNV) | payer SELFPAY | PROVIDERS: Admitting Provider Internal Medicine; Emergency Provider Emergency Medicine; Visit Provider Internal Medicine Hypertension Specialist | DX: N17.9 Acute kidney failure, unspecified (principal); I10 Essential (primary) hypertension | CPT/HCPCS: 99222 ==